=== PATIENT | female | born 1965 | race Hispanic/Latino ===

== ENCOUNTER 2017-08-21 09:55 | Emergency (ER) | payer BC, OTHER ==
[~2017-08-21 09:55] MED LIST: ACET1TAB12 PO; LOSA1TAB54 PO
[2017-08-21] MEDS ORDERED: LABETALOL HCL 5 MG/ML 20ML VIAL IV ONE (10:08)
[2017-08-21 10:20] LABS: BASOPHILS % (AUTO) 0.8 % (0.0-5.0); EOSINOPHILS % (AUTO) 1.5 % (0.0-8.0); LYMPHOCYTES % (AUTO) 13.3 % (21.0-51.0); MEAN CORPUSCULAR HEMOGLOBIN 28.6 pg (27.0-33.0); MEAN CORPUSCULAR HGB CONC 34.2 g/dL (32.0-36.0); MEAN CORPUSCULAR VOLUME 83.8 fL (79-99); MONOCYTES % (AUTO) 11.3 % (3.0-13.0); NEUTROPHILS % (AUTO) 73.1 % (40.0-77.0); NUCLEATED RED BLOOD CELLS 0.2 % (0.0-0.19); PLATELET COUNT (AUTO) 200 K/uL (130-400); RED BLOOD CELL COUNT(AUTO) 4.78 MIL/uL (4.00-5.50); RED CELL DISTRIBUTION WIDTH 13.6 % (11.0-15.5); WHITE BLOOD COUNT (AUTO) 6.3 K/uL (4.8-10.8)
[2017-08-21 10:29] LABS: CREATININE 0.8 mg/dL (0.5-1.5); POTASSIUM 3.6 mmol/L (3.5-5.1)
== END 2017-08-21 12:49 | disposition home or self-care (01) ==
LOC: EDH 09:55
DX: I10 Essential (primary) hypertension (principal); R51 Headache; E78.5 Hyperlipidemia, unspecified; E11.9 Type 2 diabetes mellitus without complications
CPT/HCPCS: 36415; 70450; 80048; 84484; 84702; 85025; 93005; 96374; 99285; J3490

== ENCOUNTER → 2018-10-26 | Outpatient (CLI) | payer OTHER | END | disposition home or self-care (01) | LOC: LAB 10:09 | PROVIDERS: ATTEND Psychiatry & Neurology Psychiatry | DX: Z79.899 Other long term (current) drug therapy (principal) | CPT/HCPCS: 93005 ==

== ENCOUNTER 2019-01-31 13:28 | Emergency (ER) | payer OTHER | END 2019-01-31 16:09 | disposition home or self-care (01) | LOC: EDH 13:28 | DX: I10 Essential (primary) hypertension (principal); E11.9 Type 2 diabetes mellitus without complications; E78.5 Hyperlipidemia, unspecified ==